=== PATIENT | female | born 1985 | race African-American/Black ===

== ENCOUNTER 2024-02-25 02:25 | Emergency (ER) | payer SELFPAY ==
[~2024-02-25] VITALS: Ht 175.3 cm; Wt 61.0 kg
[2024-02-25 02:35] VITALS: TEMP 97.9; O2SAT 99
[2024-02-25] MEDS: DEXTROSE 50% WATER 50ML SYRINGE IV ONE (03:04)
[2024-02-25] MEDS: LORAZEPAM 2MG/ML INJ IV ONE (03:11)
[2024-02-25 04:06] LABS: HEMATOCRIT. 29.9 % (36.0-48.0); HEMOGLOBIN. 9.8 g/dL (12.0-16.0); MEAN CORPUSCULAR HEMOGLOBIN 30.7 pg (28.0-32.0); MEAN CORPUSCULAR HGB CONC 32.7 g/dL (31.0-37.0); MEAN CORPUSCULAR VOLUME 93.9 fL (81.0-99.0); MEAN PLATELET VOLUME 8.1 fl (7.4-10.4); PLATELET 120 x1000/uL (130-400); RED BLOOD CELL COUNT 3.19 mill/uL (4.2-5.4); RED CELL DISTRIBUTION WIDTH 21.2 % (11.6-14.6)
[2024-02-25 04:26] LABS: CHLORIDE 101 mEq/L (98-107); SODIUM 135 mEq/L (136-145)
[2024-02-25 04:27] LABS: CALCIUM 8.6 mg/dL (8.7-10.4); CARBON DIOXIDE 18 mEq/L (21-32)
[2024-02-25 04:32] LABS: CREATININE 0.7 mg/dL (0.6-1.0); GLUCOSE 251 mg/dL (70-105); UREA NITROGEN BLOOD 9 mg/dL (9-23)
[2024-02-25 04:33] LABS: ETHANOL BLOOD 144 mg/dL (<10); TROPONIN I HIGH SENSITIVITY 9 ng/L (3.0-34)
[2024-02-25 04:38] LABS: PARTIAL THROMBOPLASTIN TIME 24.5 sec (23.4-31.0); PROTHROMBIN TIME 11.1 sec (9.6-11.0)
[2024-02-25 04:40] LABS: HCG SCREEN NEGATIVE
[2024-02-25 04:49] LABS: DIFFERENTIAL COMMENT 1; WHITE BLOOD COUNT 1.6 x1000/uL (4.5-11.0)
[2024-02-25 06:00] VITALS: BP 133/94; PULSE 128; RESP 21; O2SAT 100
[2024-02-25 10:18] LABS: ANISOCYTOSIS 2+; PLATELET ESTIMATE SLIGHTLY DECREASED
== END 2024-02-25 06:42 | disposition home or self-care (01) ==
LOC: ER 02:33 → EDBEDREQ 05:00 → EDBEDREQTM 05:00 → ER 06:42
DX: E16.2 Hypoglycemia, unspecified (principal); F10.229 Alcohol dependence with intoxication, unspecified; D72.819 Decreased white blood cell count, unspecified
CPT/HCPCS: 80048; 80320; 84703; 83880; 85025; 85610; 85730; 84484; 36415; 71045; 93005; 96374; 96375; 99285; J2060; Z7610 ×2; A4606; G0480

== ENCOUNTER 2024-03-08 04:11 | Inpatient (IN) | payer OTHER ==
[~2024-03-08] VITALS: Ht 175.3 cm; Wt 68.5 kg
[2024-03-08] MEDS: SODIUM CHLORIDE 0.9% 1,000 ML IV ONE (06:35)
[2024-03-08 06:41] LABS: CARBON DIOXIDE 21 mEq/L (21-32); CHLORIDE 105 mEq/L (98-107); HEMATOCRIT. 35.5 % (36.0-48.0); HEMOGLOBIN. 11.6 g/dL (12.0-16.0); MEAN CORPUSCULAR HEMOGLOBIN 31.1 pg (28.0-32.0); MEAN CORPUSCULAR HGB CONC 32.7 g/dL (31.0-37.0); MEAN PLATELET VOLUME 8.4 fl (7.4-10.4); PLATELET 228 x1000/uL (130-400); RED BLOOD CELL COUNT 3.74 mill/uL (4.2-5.4); RED CELL DISTRIBUTION WIDTH 20.5 % (11.6-14.6); SODIUM 141 mEq/L (136-145)
[2024-03-08 06:42] LABS: CALCIUM 8.8 mg/dL (8.7-10.4)
[2024-03-08] MEDS: LORAZEPAM 2MG/ML INJ IV STA (06:44)
[2024-03-08] MEDS: ONDANSETRON HCL 4MG/2ML INJ IV STA (06:45)
[2024-03-08 06:47] LABS: CREATININE 0.6 mg/dL (0.6-1.0); ETHANOL BLOOD 144 mg/dL (<10); GLUCOSE 84 mg/dL (70-105); TROPONIN I HIGH SENSITIVITY 7 ng/L (3.0-34); UREA NITROGEN BLOOD 8 mg/dL (9-23)
[2024-03-08 06:48] LABS: ALANINE AMINOTRANSFERASE 138 IU/L (10-49); ASPARTATE AMINOTRANSFERASE 275 IU/L (<34)
[2024-03-08 06:49] LABS: ACETAMINOPHEN < 2 ug/mL (10-30); ALBUMIN 3.8 g/dL (3.2-4.8); BILIRUBIN DIRECT 0.4 mg/dL (<=3.0); BILIRUBIN TOTAL 1.2 mg/dL (0.1-1.0); CREATINE KINASE 179 IU/L (34-145)
[2024-03-08 06:50] LABS: CLARITY URINE CLOUDY (CLEAR); COLOR URINE DARK YELLOW (YELLOW); GLUCOSE URINE NEGATIVE (NEGATIVE); KETONES URINE NEGATIVE (NEGATIVE); LEUKOCYTE ESTERASE URINE TRACE (NEGATIVE); NITRITE URINE NEGATIVE (NEGATIVE); OCCULT BLOOD URINE NEGATIVE (NEGATIVE); PH URINE 5.5 (4.5-8.0); PROTEIN URINE 1+ (NEGATIVE)
[2024-03-08 07:00] LABS: *AMPHETAMINES SCREEN URINE NEGATIVE (NEGATIVE); *BARBITURATES SCREEN URINE PRESUMPTIVE POSITIVE (NEGATIVE); *BENZODIAZEPINES SCREEN URINE PRESUMPTIVE POSITIVE (NEGATIVE); *COCAINE SCREEN URINE NEGATIVE (NEGATIVE); CANNABINOID URINE SCREEN NEGATIVE (NEGATIVE); METHADONE URINE SCREEN NEGATIVE (NEGATIVE); OPIATES URINE SCREEN NEGATIVE (NEGATIVE); PHENCYCLIDINE URINE SCREEN NEGATIVE (NEGATIVE)
[2024-03-08 07:01] LABS: ECSTASY MDMA SCREEN URINE NEGATIVE (NEGATIVE)
[2024-03-08 07:04] LABS: LACTIC ACID 5.6 mmol/L (0.4-2.0)
[2024-03-08 07:09] LABS: HCG SCREEN NEGATIVE
[2024-03-08 07:11] LABS: BACTERIA URINE NONE SEEN; RBC URINE 0-2 /hpf (0-2); SQUAMOUS EPITHELIAL CELL URINE 1+ /lpf (RARE/1+); WBC URINE 0-2 /hpf (0-2)
[2024-03-08 07:56] LABS: DIFFERENTIAL COMMENT 1; WHITE BLOOD COUNT 1.4 x1000/uL (4.5-11.0)
[2024-03-08] MEDS ORDERED: ACETAMINOPHEN 325MG TABLET PO PRN (10:15)
[2024-03-08] MEDS ORDERED: ONDANSETRON HCL 4MG/2ML INJ IV PRN (10:15)
[2024-03-08] MEDS: LORAZEPAM 1MG TABLET PO PRN (10:19)
[2024-03-08] MEDS: FOLIC ACID 1 MG, THIAMINE HCL 100 MG, MVI, ADULT NO.1 10 ML in DEXTROSE 5% WATER 1,000 ML IV ONE (10:30)
[2024-03-08 14:00] VITALS: BP 141/101; PULSE 86; RESP 20; TEMP 36.5848
[2024-03-08] MEDS: CHLORDIAZEPOXIDE 25MG CAPSULE PO SCH (14:07)
[2024-03-08 15:07] VITALS: BP 141/101; PULSE 86; RESP 20; TEMP 36.55848; O2SAT 96
[2024-03-08 20:00] VITALS: BP 132/97; PULSE 88; RESP 20; TEMP 36.50292; O2SAT 100
[2024-03-09] VITALS: BP 124/90; PULSE 68; RESP 20; TEMP 36.55848; O2SAT 99
[2024-03-09 00:04] LABS: PLATELET ESTIMATE NORMAL
[2024-03-09 04:00] VITALS: BP 133/97; PULSE 82; RESP 20; TEMP 36.55848; O2SAT 100
[2024-03-09 08:00] VITALS: BP 145/109; PULSE 97; RESP 20; TEMP 36.16956; O2SAT 100
[2024-03-09 09:39] VITALS: BP 145/109; PULSE 97; TEMP 97.1; O2SAT 100
[2024-03-09] MEDS ORDERED: KEPP500 MT (09:47)
[2024-03-09] MEDS ORDERED: CHLO25CA11 MT (09:47)
== END 2024-03-09 10:30 | disposition home or self-care (01) | DRG 101 ==
LOC: ER 04:11 → 7WST 08:07
PROVIDERS: ADMIT Internal Medicine; ATTEND Internal Medicine
DX: R56.9 Unspecified convulsions (principal); F10.239 Alcohol dependence with withdrawal, unspecified; I10 Essential (primary) hypertension; Z79.899 Other long term (current) drug therapy; Y90.6 Blood alcohol level of 120-199 mg/100 ml
CPT/HCPCS: 36415; 71045; 80048; 80076; 80305; 80307; 80320; 80329; 81003; 82550; 83605; 84484; 84703; 85025; 93005; 99285; A4606; A4663; J2060; J2405; J3411; J3490; J7030; J7070; G0480